=== PATIENT | male | born 1995 | race Caucasian/White ===

== ENCOUNTER 2017-07-21 20:51 | Emergency (ER) | payer SELFPAY ==
[2017-07-21 21:16] VITALS: BP 123/61
--- NOTE | 2017-07-21 22:30 | ER Document Report ---
HPI - HPI Patient complains to provider of: left knee pain Onset: Other - since teenager Onset/Duration: Intermittent Pain Level: 5 Context: 21 yo male in [employer] training has left knee popping intermittently. yesterday none while moving furniture, but then at work had a pop again. Does not go out of place. Associated Symptoms: None Exacerbated by: Other - see above Relieved by: Denies Similar symptoms previously: Yes Recently seen / treated by doctor: No - ROS ROS below otherwise negative: Yes Systems Reviewed and Negative: Yes All other systems reviewed and negative - DERM Skin Color: Normal, [place] Past Medical History - General Information source: Patient - Social History Smoking Status: Never Smoker Frequency of alcohol use: None Drug Abuse: None Lives with: Family Family History: Reviewed & Not Pertinent - Medical History Medical History: Negative Renal/ Medical History: Denies: Hx Peritoneal Dialysis Surgical Hx: Negative Vertical Provider Document - CONSTITUTIONAL Agree With Documented VS: Yes Exam Limitations: No Limitations General Appearance: No Apparent Distress - INFECTION CONTROL TRAVEL OUTSIDE OF THE [place] IN LAST 30 DAYS: No - HEENT HEENT: Normocephalic - NECK Neck: Supple - RESPIRATORY O2 Sat by Pulse Oximetry: 98 - MUSCULOSKELETAL/EXTREMETIES Musculoskeletal/Extremeties: MAEW, FROM, Non-Tender - no point tenderness, no effusion, No Edema - NEURO Level of Consciousness: Awake, Alert Course - Re-evaluation Re-evalutation: 07/21/17 23:44 Knee x-ray is negative per radiology. - Vital Signs Vital signs: Temp Pulse Resp BP Pulse Ox 98.5 F 72 16 123/61 98 07/21/17 21:13 07/21/17 21:13 07/21/17 21:13 07/21/17 21:13 07/21/17 21:13 Procedures - Immobilization Left Leg Time completed: 00:00 Pre-Proc Neuro Vasc Exam: Normal Immobilizer type: Knee immobilizer Performed by: ADINA Post-Proc Neuro Vasc Exam: Normal Alignment checked and good: Yes Discharge - Discharge Clinical Impression: chronic intermittent left knee pain Condition: Good Disposition: HOME, SELF-CARE Instructions: Anti-Inflammatory Medication ([facility]), Suspected Internal Knee Injury ([facility]), Knee Immobilizing Splint ([facility]) Additional Instructions: Knee immobilizer See the orthopedic surgeon Return to the emergency room any concerns Motrin for pain Please complete the patient satisfaction survey if you get one, and return it.. If you do not receive a survey, then you can go to the [facility] website, [email or web address] and place your comments about your very good care. Thank you very much. It was a pleasure being your medical provider today. Prescriptions: Ibuprofen [Motrin 600 mg Tablet] 600 mg PO Q8HP PRN #30 tablet PRN Reason: Forms: Return to Work Referrals: JODIE TAYLOR MD [ACTIVE STAFF] - Follow up in 1 week
--- NOTE | 2017-07-21 22:41 | RADIOLOGY REPORT (SQ) ---
EXAM DESCRIPTION: KNEE LEFT 3 VIEWS COMPLETED DATE/TIME: 07/21/2017 10:31 pm REASON FOR STUDY: pain/ history of injury COMPARISON: None. NUMBER OF VIEWS: Three views. TECHNIQUE: AP, lateral, and sunrise patella radiographic images acquired of the left knee. LIMITATIONS: None. FINDINGS: MINERALIZATION: Normal. BONES: No acute fracture or dislocation. No worrisome bone lesions. JOINT: No effusion. SOFT TISSUES: No soft tissue swelling. No radio-opaque foreign body. OTHER: No other significant finding. IMPRESSION: NEGATIVE STUDY OF THE LEFT KNEE. NO RADIOGRAPHIC EVIDENCE OF ACUTE INJURY. TECHNICAL DOCUMENTATION: JOB ID: [id number]- All Rights Reserved
[2017-07-21] MEDS ORDERED: IBUPROFEN 600 MG TABLET PO ONE (23:41)
== END 2017-07-22 | disposition home or self-care (01) ==
LOC: ER 20:51
DX: M25.562 Pain in left knee (principal); G89.29 Other chronic pain
CPT/HCPCS: 99283; 73562; L1830